=== PATIENT | female | born 1985 | race Caucasian/White ===

== ENCOUNTER 2021-11-29 14:54 | Emergency (ER) | payer OTHER ==
[~2021-11-29] VITALS: Ht 172.7 cm; Wt 135.2 kg
[2021-11-29] MEDS ORDERED: ZANAFLEX4 M1 PO (18:31)
[2021-11-29] MEDS ORDERED: [UNRECOGNIZED DRUG - CODE] TD (18:31)
[2021-11-29] MEDS ORDERED: ULTRAM50 MG PO (19:22)
== END 2021-11-29 20:33 | disposition home or self-care (01) ==
LOC: ED 14:54
DX: S93.402A Sprain of unspecified ligament of left ankle, initial encounter (principal); I25.2 Old myocardial infarction; X50.0XXA Overexertion from strenuous movement or load, initial encounter; Z79.899 Other long term (current) drug therapy; Z88.1 Allergy status to other antibiotic agents; Z88.2 Allergy status to sulfonamides
CPT/HCPCS: 73610; 96372; 99283-25; A9270; J1885